=== PATIENT | female | born 1985 | race American Indian/Alaskan Native ===

== ENCOUNTER 2019-10-02 00:19 | Emergency (ER) | payer MEDICAID, OTHER ==
[2019-10-02 00:31] VITALS: BP 149/97
== END 2019-10-02 03:27 | disposition left against medical advice (07) ==
LOC: ED 00:19
DX: R60.9 Edema, unspecified (principal); Z53.21 Procedure and treatment not carried out due to patient leaving prior to being seen by health care provider